=== PATIENT | female | born 1980 | race Two or more races ===

== ENCOUNTER 2021-10-06 10:17 | Emergency (ER) | payer MEDICAID, OTHER ==
[~2021-10-06] VITALS: Ht 170.2 cm; Wt 68.9 kg
[2021-10-06 11:35] VITALS: BP 141/91
[2021-10-06] MEDS ORDERED: IBUP800T27 PO (11:59)
[2021-10-06] MEDS ORDERED: METH750T22 PO (11:59)
== END 2021-10-06 12:53 | disposition home or self-care (01) ==
LOC: ER 10:17
DX: G89.29 Other chronic pain (principal); M25.512 Pain in left shoulder; Z79.1 Long term (current) use of non-steroidal anti-inflammatories (NSAID); Z79.899 Other long term (current) drug therapy; Z88.0 Allergy status to penicillin

== ENCOUNTER 2021-12-22 17:24 | Emergency (ER) | payer MEDICAID ==
[~2021-12-22] VITALS: Ht 170.2 cm; Wt 68.9 kg
[~2021-12-22 17:24] MED LIST: IBUP800T27 PO; METH750T22 PO
[2021-12-22 19:39] LABS: Urine Bacteria NONE SEEN /hpf (None Seen); Urine Blood Negative /uL (Negative); Urine Mucus FEW (None Seen); Urine Specific Gravity 1.034 (1.001-1.035); Urine WBC 10 /hpf (0 - 5)
[2021-12-22 19:44] VITALS: BP 116/72
[2021-12-22 19:48] LABS: Amphetamine Screen, Urine NEGATIVE (NEGATIVE); Barbiturate Scree,Urine NEGATIVE (NEGATIVE); Benzodiazephine Screen, Urine NEGATIVE (NEGATIVE); Cannabinoid Screen, Urine NEGATIVE (NEGATIVE); Cocaine Screen, Urine NEGATIVE (NEGATIVE); Opiate Scree,Urine NEGATIVE (NEGATIVE); Phencyclidine Screen, Urine NEGATIVE (NEGATIVE)
== END 2021-12-23 03:13 | disposition left against medical advice (07) ==
LOC: ER 17:29
DX: F41.9 Anxiety disorder, unspecified (principal); Z53.21 Procedure and treatment not carried out due to patient leaving prior to being seen by health care provider
CPT/HCPCS: 80307; 81001